=== PATIENT | male | born 1935 | race Caucasian/White ===

== ENCOUNTER 2017-06-22 00:04 | Emergency (ER) | payer MEDICARE, OTHER ==
[2017-06-22] MEDS ORDERED: SODIUM CHLORIDE 0.9% 1,000 ML IV STA (00:07)
[2017-06-22] MEDS ORDERED: SODIUM CHLORIDE 0.9% 500 ML IV STA (00:07)
--- NOTE | 2017-06-22 00:10 | ED ---
General Adult HPI - General Stated complaint: NVD Time Seen by Provider: 06/22/17 00:07 Source: patient, EMS, RN notes reviewed, old records reviewed - History of Present Illness Initial comments: 82-year-old male presenting with nausea vomiting and diarrhea. History is obtained from EMS. [facility] According to [facility] staff patient had developed diarrhea and generalized weakness throughout the day today. He is normally able to ambulate with assistance and he was unable to do so. Chest prior to calling EMS patient did develop one episode of vomiting. Patient is alert and oriented 1 at baseline. According to EMS was history of closed head injury. Patient has no complaints at the time my evaluation, denies any pain. - Related Data Home Medications Medication Instructions Recorded Confirmed Atenolol [Tenormin] 12.5 mg PO DAILY@0800 11/23/13 11/28/15 Omeprazole [PriLOSEC] 20 mg PO BID@0800,199911/23/13 11/28/15 risperiDONE [RisperDAL] 0.5 mg PO BID@0800,199911/23/13 11/28/15 ALPRAZolam [Xanax] 0.25 mg PO DAILY PRN 05/30/14 11/28/15 Acetaminophen Tab [Tylenol] 650 mg PO Q4H PRN 05/30/14 11/28/15 Potassium Chloride [Klor-Con 10] 10 meq PO BID@0800,199905/30/14 11/28/15 Acetaminophen Tab [Tylenol] 500 mg PO BID@0800,199911/28/15 11/28/15 Donepezil [Aricept] 10 mg PO DAILY@0800 11/28/15 11/28/15 Furosemide [Lasix] 20 mg PO Q48H 11/28/15 11/28/15 Memantine [Namenda] 5 mg PO BID@0800,199911/28/15 11/28/15 Pravastatin Sodium [Pravachol] 40 mg PO HS@199911/28/15 11/28/15 Prochlorperazine [Compazine] 5 mg PO Q6H PRN 11/28/15 11/28/15 Rivaroxaban [Xarelto] 15 mg PO HS@199911/28/15 11/28/15 Sertraline [Zoloft] 100 mg PO DAILY@0800 11/28/15 11/28/15 amLODIPine [Norvasc] 2.5 mg PO DAILY@0800 11/28/15 11/28/15 Allergies Allergy/AdvReac Type Severity Reaction Status Date / Time Penicillins Allergy Unknown Verified 11/28/15 14:03 Review of Systems ROS Statement: Those systems with pertinent positive or pertinent negative responses have been documented in the HPI. ROS Other: All systems not noted in ROS Statement are negative. Past Medical History Past Medical History: Asthma, GERD/Reflux, Hyperlipidemia, Hypertension Additional Past Medical History / Comment(s): right leg tumor History of Any Multi-Drug Resistant Organisms: None Reported Past Surgical History: No Surgical Hx Reported Additional Past Surgical History / Comment(s): right leg tumor removed 2001 Past Anesthesia/Blood Transfusion Reactions: No Reported Reaction Past Psychological History: No Psychological Hx Reported, Depression Smoking Status: Former smoker Past Alcohol Use History: None Reported Past Drug Use History: None Reported - Past Family History Father Family Medical History: Hyperlipidemia, Hypertension, Myocardial Infarction ([place]) Additional Family Medical History / Comment(s): cerebral hemorrage Mother Family Medical History: Congestive Heart Failure (CHF), Vascular Disorder Additional Family Medical History / Comment(s): enlarged heart,poor circulation General Exam General appearance: alert, in no apparent distress Head exam: Present: atraumatic, normocephalic Eye exam: Present: normal appearance, PERRL ENT exam: Present: mucous membranes dry Neck exam: Present: normal inspection. Absent: tenderness, meningismus Respiratory exam: Present: normal lung sounds bilaterally. Absent: respiratory distress, wheezes Cardiovascular Exam: Present: regular rate, irregular rhythm GI/Abdominal exam: Present: soft. Absent: distended, tenderness, guarding, rebound Extremities exam: Present: normal inspection, full ROM Neurological exam: Present: alert, motor sensory deficit (Reduced shopper strength on the right with some contracture.). Absent: oriented X3 (Name only) Psychiatric exam: Present: agitated Skin exam: Present: warm, dry, intact. Absent: cyanosis, diaphoretic Course Vital Signs 06/22/17 06/22/17 00:58 01:34 Temperature 96.9 F L Pulse Rate 80 92 Respiratory 18 16 Rate Blood Pressure 163/69 137/62 O2 Sat by Pulse 96 96 Oximetry - Reevaluation(s) Reevaluation #1: 06/22/17 00:28 Further history is obtained from the patient's daughter who states she was informed of the nausea vomiting and diarrhea. She confirms that the patient is at his baseline mental status. He does have history of A. fib, remote history of cancer. EKG Findings - EKG Comments: EKG Findings:: EKG: Atrial fibrillation with PVC rate of 90, QRS duration 80, QTc 506 no definitive signs of ischemia. Medical Decision Making - Medical Decision Making 82-year-old male with nausea vomiting and diarrhea. History obtained primarily from the patient's daughter, EMS and the medical record. Exam is unremarkable. Patient does appear slightly dehydrated, no abdominal tenderness or distention. Lungs are clear, heart is irregular normal rate. Laboratory studies obtained, mild leukocytosis may be reactive from vomiting. Hemoglobin 13.0. Electrolytes reveal sodium 144, there is elevated magnesium at 2.6, otherwise electrolytes are within normal limits. Lactic acid is negative. Chest x-ray obtained, negative for focal pneumonia or acute processes. KUB is negative for obstruction or free air. Urinalysis does not show significant signs of infection. Patient is observed in the emergency department, no episodes of vomiting or diarrhea. Case discussed at length with the patient's daughter who is at bedside, comfortable with discharge at this time. Patient will be [facility]. If symptoms persists or there is concern for dehydration, patient will be presented to the emergency department. - Lab Data Result diagrams: 06/22/17 00:09 06/22/17 00:09 Lab Results 06/22/17 06/22/17 06/22/17 Range/Units 00:09 00:09 00:09 WBC 12.0 H (3.8-10.6) k/uL RBC 4.71 (4.30-5.90) m/uL Hgb 13.0 (13.0-17.5) gm/dL Hct 42.0 (39.0-53.0) % MCV 89.1 (80.0-100.0) fL MCH 27.7 (25.0-35.0) pg MCHC 31.1 (31.0-37.0) g/dL RDW 17.6 H (11.5-15.5) % Plt Count 151 (150-450) k/uL Neutrophils % 84 % Lymphocytes % 7 % Monocytes % 7 % Eosinophils % 2 % Basophils % 0 % Neutrophils # 10.0 H (1.3-7.7) k/uL Lymphocytes # 0.8 L (1.0-4.8) k/uL Monocytes # 0.8 (0-1.0) k/uL Eosinophils # 0.2 (0-0.7) k/uL Basophils # 0.0 (0-0.2) k/uL Hypochromasia Moderate Anisocytosis Slight PT (9.0-12.0) sec INR (<1.2) APTT (22.0-30.0) sec Sodium 144 (137-145) mmol/L Potassium 4.2 (3.5-5.1) mmol/L Chloride 104 (98-107) mmol/L Carbon Dioxide 30 (22-30) mmol/L Anion Gap 10 mmol/L BUN 21 H (9-20) mg/dL Creatinine 0.80 (0.66-1.25) mg/dL Est GFR (CKD-EPI)AfAm >90 (>60 ml/min/1.73 sqM) Est GFR (CKD-EPI)NonAf 84 (>60 ml/min/1.73 sqM) Glucose 112 H (74-99) mg/dL Plasma Lactic Acid Enrique 1.2 (0.7-2.0) mmol/L Calcium 8.3 L (8.4-10.2) mg/dL Magnesium 2.6 H (1.6-2.3) mg/dL Total Bilirubin 0.2 (0.2-1.3) mg/dL AST 21 (17-59) U/L ALT 29 (21-72) U/L Alkaline Phosphatase 141 H (38-126) U/L Total Protein 6.2 L (6.3-8.2) g/dL Albumin 3.4 L (3.5-5.0) g/dL Urine Color Urine Appearance (Clear) Urine pH (5.0-8.0) Ur Specific [place] (1.001-1.035) Urine Protein (Negative) Urine Glucose (UA) (Negative) Urine Ketones (Negative) Urine Blood (Negative) Urine Nitrite (Negative) Urine Bilirubin (Negative) Urine Urobilinogen (<2.0) mg/dL Ur Leukocyte Esterase (Negative) Urine RBC (0-5) /hpf Urine WBC (0-5) /hpf Amorphous Sediment (None) /hpf Urine Mucus (None) /hpf 06/22/17 06/22/17 Range/Units 00:09 01:32 WBC (3.8-10.6) k/uL RBC (4.30-5.90) m/uL Hgb (13.0-17.5) gm/dL Hct (39.0-53.0) % MCV (80.0-100.0) fL MCH (25.0-35.0) pg MCHC (31.0-37.0) g/dL RDW (11.5-15.5) % Plt Count (150-450) k/uL Neutrophils % % Lymphocytes % % Monocytes % % Eosinophils % % Basophils % % Neutrophils # (1.3-7.7) k/uL Lymphocytes # (1.0-4.8) k/uL Monocytes # (0-1.0) k/uL Eosinophils # (0-0.7) k/uL Basophils # (0-0.2) k/uL Hypochromasia Anisocytosis PT 9.6 (9.0-12.0) sec INR 1.0 (<1.2) APTT 22.9 (22.0-30.0) sec Sodium (137-145) mmol/L Potassium (3.5-5.1) mmol/L Chloride (98-107) mmol/L Carbon Dioxide (22-30) mmol/L Anion Gap mmol/L BUN (9-20) mg/dL Creatinine (0.66-1.25) mg/dL Est GFR (CKD-EPI)AfAm (>60 ml/min/1.73 sqM) Est GFR (CKD-EPI)NonAf (>60 ml/min/1.73 sqM) Glucose (74-99) mg/dL Plasma Lactic Acid Enrique (0.7-2.0) mmol/L Calcium (8.4-10.2) mg/dL Magnesium (1.6-2.3) mg/dL Total Bilirubin (0.2-1.3) mg/dL AST (17-59) U/L ALT (21-72) U/L Alkaline Phosphatase (38-126) U/L Total Protein (6.3-8.2) g/dL Albumin (3.5-5.0) g/dL Urine Color Light Yellow Urine Appearance Clear (Clear) Urine pH 8.0 (5.0-8.0) Ur Specific [place] 1.007 (1.001-1.035) Urine Protein Negative (Negative) Urine Glucose (UA) Negative (Negative) Urine Ketones Negative (Negative) Urine Blood Small H (Negative) Urine Nitrite Negative (Negative) Urine Bilirubin Negative (Negative) Urine Urobilinogen <2.0 (<2.0) mg/dL Ur Leukocyte Esterase Small H (Negative) Urine RBC 4 (0-5) /hpf Urine WBC 4 (0-5) /hpf Amorphous Sediment Rare H (None) /hpf Urine Mucus Rare H (None) /hpf Disposition Clinical Impression: Nausea vomiting and diarrhea Disposition: HOME SELF-CARE Condition: Fair Instructions: Acute Nausea and Vomiting (ED), Acute Diarrhea (ED) Is patient prescribed a controlled substance at d/c from ED?: No Referrals: Rj Mathis MD [Primary Care Provider] - 1-2 days Time of Disposition: 02:04
[2017-06-22 00:46] LABS: Anisocytosis Slight; Hypochromasia Moderate; RDW 17.6 % (11.5-15.5)
[2017-06-22 00:55] LABS: ALT 29 U/L (21-72); AST 21 U/L (17-59); Albumin 3.4 g/dL (3.5-5.0); Alkaline Phosphatase 141 U/L (38-126); Anion Gap 10 mmol/L; Blood Urea Nitrogen 21 mg/dL (9-20); Calcium 8.3 mg/dL (8.4-10.2); Carbon Dioxide 30 mmol/L (22-30); Chloride 104 mmol/L (98-107); Glucose 112 mg/dL (74-99); Magnesium 2.6 mg/dL (1.6-2.3); Potassium 4.2 mmol/L (3.5-5.1); Sodium 144 mmol/L (137-145); Total Bilirubin 0.2 mg/dL (0.2-1.3); Total Protein 6.2 g/dL (6.3-8.2)
[2017-06-22 01:01] LABS: Partial Thromboplastin Time 22.9 sec (22.0-30.0); Prothrombin Time 9.6 sec (9.0-12.0)
[2017-06-22 01:08] LABS: Basophils % (A) 0 %; Eosinophils # (A) 0.2 k/uL (0-0.7); Eosinophils % (A) 2 %; Lymphocytes # (A) 0.8 k/uL (1.0-4.8); Lymphocytes % (A) 7 %; MCH 27.7 pg (25.0-35.0); MCHC 31.1 g/dL (31.0-37.0); MCV 89.1 fL (80.0-100.0); Mean Platelet Volume 8.5; Monocytes # (A) 0.8 k/uL (0-1.0); Monocytes % (A) 7 %; Neutrophils % (A) 84 %; Platelet Count 151 k/uL (150-450); RBC 4.71 m/uL (4.30-5.90)
--- NOTE | 2017-06-22 01:25 | XR ---
EXAMINATION TYPE: XR chest 2V DATE OF EXAM: 06/22/2017 COMPARISON: 11/28/2015 HISTORY: Weakness TECHNIQUE: Frontal and lateral views of the chest are obtained. FINDINGS: There is no heart failure. There is coarsening of interstitial markings. There are old lef t-sided healed rib fractures. There are chest leads. Thoracic aorta is atheromatous. There is some pl eural thickening at the lung apices. IMPRESSION: Pleural and pulmonary scarring at the lung apices. Mild pulmonary fibrosis. No heart evelyn lure. No significant change overall compared to old exam.
--- NOTE | 2017-06-22 01:26 | XR ---
EXAMINATION TYPE: XR KUB DATE OF EXAM: 06/22/2017 COMPARISON: 11/24/2013 HISTORY: Weakness TECHNIQUE: 2 views FINDINGS: There is no sign of intestinal obstruction or pneumoperitoneum. There is a slight levoscoli osis. There are spondylotic changes in the lumbar spine. There are no pathologic calcifications over the kidneys. I see no evidence of a mass. IMPRESSION: Nonacute abdomen. No significant change.
[2017-06-22 01:35] VITALS: RESP 16
[2017-06-22 01:42] LABS: Amorphous Sediment,Urine Rare /hpf; Appearance,Urine Clear (Clear); Bilirubin,Urine Negative (Negative); Blood,Urine Small (Negative); Color,Urine Light Yellow; Glucose,Urine (UA) Negative (Negative); Ketones,Urine Negative (Negative); Leukocyte Esterase,Urine Small (Negative); Mucus,Urine Rare /hpf; Nitrite,Urine Negative (Negative); Protein,Urine Negative (Negative); RBC,Urine 4 /hpf (0-5); Specific Gravity,Urine 1.007 (1.001-1.035); Urobilinogen,Urine <2.0 mg/dL (<2.0); WBC,Urine 4 /hpf (0-5)
[2017-06-22 02:54] VITALS: BP 130/65; PULSE 89; TEMP 97.2
== END 2017-06-22 02:53 | disposition home or self-care (01) ==
LOC: EC 00:04
DX: R11.2 Nausea with vomiting, unspecified (principal); R19.7 Diarrhea, unspecified; R53.1 Weakness; K21.9 Gastro-esophageal reflux disease without esophagitis; E78.5 Hyperlipidemia, unspecified; I10 Essential (primary) hypertension; I48.91 Unspecified atrial fibrillation; F32.9 Major depressive disorder, single episode, unspecified; Z85.9 Personal history of malignant neoplasm, unspecified; Z87.891 Personal history of nicotine dependence; Z79.01 Long term (current) use of anticoagulants; Z79.899 Other long term (current) drug therapy; Z88.0 Allergy status to penicillin
CPT/HCPCS: 36415; 71046; 74018; 80053; 81001; 83605; 83735; 85025; 85610; 85730; 93005; 96360; 99285

== ENCOUNTER 2017-07-28 19:28 | Inpatient (IN) | payer MEDICARE, OTHER ==
[2017-07-28] MEDS ORDERED: SODIUM CHLORIDE 0.9% 1,000 ML IV STA (19:46)
[2017-07-28] MEDS ORDERED: DILTIAZEM 50 MG in SODIUM CHLORIDE 0.9% 40 ML IV ONE (19:50)
[2017-07-28] MEDS ORDERED: LIDOCAINE URO-JET JELLY 2% 5 ML KIT URETHRAL ONE (20:00)
--- NOTE | 2017-07-28 20:08 | ED ---
Fever HPI - General Chief Complaint: Fever Stated Complaint: Abd Pain, Vomitting Time Seen by Provider: 07/28/17 19:36 Source: patient, family, RN notes reviewed Mode of arrival: wheelchair Limitations: altered mental status - History of Present Illness Initial Comments: This an 82-year-old male with said that her [facility]. Patient reportedly has been sick last few days. Patient has had a cough which is productive with phlegm and shortness of breath. Patient himself has no specific complaints other than the cough. Family also states that he is had issues with constipation they did give him milk of magnesia and had 3 bowel movements 2 days ago. Patient reports 2 episodes of vomiting today but has no complaints of nausea at this time. Patient has a history of A. fib. Patient denies any ear pain, sore throat, headache or dizziness. - Related Data Home Medications Medication Instructions Recorded Confirmed Atenolol [Tenormin] 12.5 mg PO DAILY@0800 11/23/13 11/28/15 Omeprazole [PriLOSEC] 20 mg PO BID@0800,199911/23/13 11/28/15 risperiDONE [RisperDAL] 0.5 mg PO BID@0800,199911/23/13 11/28/15 ALPRAZolam [Xanax] 0.25 mg PO DAILY PRN 05/30/14 11/28/15 Acetaminophen Tab [Tylenol] 650 mg PO Q4H PRN 05/30/14 11/28/15 Potassium Chloride [Klor-Con 10] 10 meq PO BID@0800,199905/30/14 11/28/15 Acetaminophen Tab [Tylenol] 500 mg PO BID@0800,199911/28/15 11/28/15 Donepezil [Aricept] 10 mg PO DAILY@0800 11/28/15 11/28/15 Furosemide [Lasix] 20 mg PO Q48H 11/28/15 11/28/15 Memantine [Namenda] 5 mg PO BID@0800,199911/28/15 11/28/15 Pravastatin Sodium [Pravachol] 40 mg PO HS@199911/28/15 11/28/15 Prochlorperazine [Compazine] 5 mg PO Q6H PRN 11/28/15 11/28/15 Rivaroxaban [Xarelto] 15 mg PO HS@2000 11/28/15 11/28/15 Sertraline [Zoloft] 100 mg PO DAILY@0800 11/28/15 11/28/15 amLODIPine [Norvasc] 2.5 mg PO DAILY@0800 11/28/15 11/28/15 Allergies Allergy/AdvReac Type Severity Reaction Status Date / Time Penicillins Allergy Unknown Verified 07/28/17 19:34 Review of Systems ROS Statement: Those systems with pertinent positive or pertinent negative responses have been documented in the HPI. ROS Other: All systems not noted in ROS Statement are negative. Past Medical History Past Medical History: Atrial Fibrillation, Asthma, Cancer, Heart Failure, COPD, CVA/TIA, Dementia, GERD/Reflux, Hyperlipidemia, Hypertension, Osteoarthritis (OA ), Prostate Disorder Additional Past Medical History / Comment(s): right leg tumor ca, [facility] History of Any Multi-Drug Resistant Organisms: None Reported Past Surgical History: Hernia Repair Additional Past Surgical History / Comment(s): right leg cancer tumor removed 2001 Past Anesthesia/Blood Transfusion Reactions: No Reported Reaction Past Psychological History: No Psychological Hx Reported, Depression Smoking Status: Former smoker Past Alcohol Use History: None Reported Past Drug Use History: None Reported - Past Family History Father Family Medical History: Hyperlipidemia, Hypertension, Myocardial Infarction ([place]) Additional Family Medical History / Comment(s): cerebral hemorrage Mother Family Medical History: Congestive Heart Failure (CHF), Vascular Disorder Additional Family Medical History / Comment(s): enlarged heart,poor circulation General Exam Limitations: altered mental status General appearance: alert, in no apparent distress Head exam: Present: atraumatic, normocephalic, normal inspection Eye exam: Present: normal appearance, PERRL, EOMI. Absent: scleral icterus, conjunctival injection, periorbital swelling ENT exam: Present: normal exam, mucous membranes moist Neck exam: Present: normal inspection. Absent: tenderness, meningismus, lymphadenopathy Respiratory exam: Present: wheezes, rhonchi. Absent: normal lung sounds bilaterally, respiratory distress, rales, stridor Cardiovascular Exam: Present: tachycardia, irregular rhythm, normal heart sounds. Absent: systolic murmur, diastolic murmur, rubs, gallop, clicks GI/Abdominal exam: Present: soft, normal bowel sounds. Absent: distended, tenderness, guarding, rebound, rigid Extremities exam: Present: normal inspection, full ROM, normal capillary refill. Absent: tenderness, pedal edema, joint swelling, calf tenderness Back exam: Present: normal inspection Neurological exam: Present: alert, CN II-XII intact. Absent: oriented X3 Psychiatric exam: Present: normal affect, normal mood Skin exam: Present: warm, dry, intact, normal color. Absent: rash Course Vital Signs 07/28/17 07/28/17 07/28/17 19:31 20:00 20:34 Temperature 99.9 F H 99.9 F H Pulse Rate 96 99 Pulse Rate [ 115 H Fire Pilot ] Respiratory 22 18 Rate Blood Pressure 144/99 160/78 O2 Sat by Pulse 93 L 96 Oximetry 07/28/17 07/28/17 21:11 21:13 Temperature Pulse Rate 86 Pulse Rate [ 84 Fire Pilot ] Respiratory 18 Rate Blood Pressure 156/72 O2 Sat by Pulse 96 Oximetry Medical Decision Making - Medical Decision Making 82-year-old male present emergency department for fever. Patient's found to have right upper lobe pneumonia. Patient also was found to have urinary retention Sanchez was placed. Urine culture was obtained. Patient was started on Levaquin for his pneumonia at this time. Patient also has A. fib history of current RVR. Patient was given Cardizem. Heart rate between 80 and 110 at this time. - Lab Data Result diagrams: 07/28/17 20:00 07/28/17 20:00 Lab Results 07/28/17 07/28/17 07/28/17 Range/Units 20:00 20:00 20:00 WBC 13.2 H (3.8-10.6) k/uL RBC 4.76 (4.30-5.90) m/uL Hgb 13.3 (13.0-17.5) gm/dL Hct 42.1 (39.0-53.0) % MCV 88.3 (80.0-100.0) fL MCH 27.9 (25.0-35.0) pg MCHC 31.6 (31.0-37.0) g/dL RDW 18.1 H (11.5-15.5) % Plt Count 128 L (150-450) k/uL Neutrophils % 89 % Lymphocytes % 4 % Monocytes % 6 % Eosinophils % 1 % Basophils % 0 % Neutrophils # 11.8 H (1.3-7.7) k/uL Lymphocytes # 0.5 L (1.0-4.8) k/uL Monocytes # 0.7 (0-1.0) k/uL Eosinophils # 0.1 (0-0.7) k/uL Basophils # 0.0 (0-0.2) k/uL Hypochromasia Slight Anisocytosis Slight PT (9.0-12.0) sec INR (<1.2) APTT (22.0-30.0) sec Sodium 143 (137-145) mmol/L Potassium 4.2 (3.5-5.1) mmol/L Chloride 107 (98-107) mmol/L Carbon Dioxide 25 (22-30) mmol/L Anion Gap 11 mmol/L BUN 19 (9-20) mg/dL Creatinine 1.20 (0.66-1.25) mg/dL Est GFR (CKD-EPI)AfAm 65 (>60 ml/min/1.73 sqM) Est GFR (CKD-EPI)NonAf 56 (>60 ml/min/1.73 sqM) Glucose 170 H (74-99) mg/dL Plasma Lactic Acid Enrique 1.6 (0.7-2.0) mmol/L Calcium 9.2 (8.4-10.2) mg/dL Total Bilirubin 0.5 (0.2-1.3) mg/dL AST 31 (17-59) U/L ALT 35 (21-72) U/L Alkaline Phosphatase 104 (38-126) U/L Troponin I (0.000-0.034) ng/mL Total Protein 6.5 (6.3-8.2) g/dL Albumin 3.7 (3.5-5.0) g/dL Urine Color Urine Appearance (Clear) Urine pH (5.0-8.0) Ur Specific [place] (1.001-1.035) Urine Protein (Negative) Urine Glucose (UA) (Negative) Urine Ketones (Negative) Urine Blood (Negative) Urine Nitrite (Negative) Urine Bilirubin (Negative) Urine Urobilinogen (<2.0) mg/dL Ur Leukocyte Esterase (Negative) Urine RBC (0-5) /hpf Urine WBC (0-5) /hpf Urine WBC Clumps (None) /hpf Urine Mucus (None) /hpf 07/28/17 07/28/17 07/28/17 Range/Units 20:00 20:00 20:26 WBC (3.8-10.6) k/uL RBC (4.30-5.90) m/uL Hgb (13.0-17.5) gm/dL Hct (39.0-53.0) % MCV (80.0-100.0) fL MCH (25.0-35.0) pg MCHC (31.0-37.0) g/dL RDW (11.5-15.5) % Plt Count (150-450) k/uL Neutrophils % % Lymphocytes % % Monocytes % % Eosinophils % % Basophils % % Neutrophils # (1.3-7.7) k/uL Lymphocytes # (1.0-4.8) k/uL Monocytes # (0-1.0) k/uL Eosinophils # (0-0.7) k/uL Basophils # (0-0.2) k/uL Hypochromasia Anisocytosis PT 9.8 (9.0-12.0) sec INR 1.0 (<1.2) APTT 22.1 (22.0-30.0) sec Sodium (137-145) mmol/L Potassium (3.5-5.1) mmol/L Chloride (98-107) mmol/L Carbon Dioxide (22-30) mmol/L Anion Gap mmol/L BUN (9-20) mg/dL Creatinine (0.66-1.25) mg/dL Est GFR (CKD-EPI)AfAm (>60 ml/min/1.73 sqM) Est GFR (CKD-EPI)NonAf (>60 ml/min/1.73 sqM) Glucose (74-99) mg/dL Plasma Lactic Acid Enrique (0.7-2.0) mmol/L Calcium (8.4-10.2) mg/dL Total Bilirubin (0.2-1.3) mg/dL AST (17-59) U/L ALT (21-72) U/L Alkaline Phosphatase (38-126) U/L Troponin I <0.012 (0.000-0.034) ng/mL Total Protein (6.3-8.2) g/dL Albumin (3.5-5.0) g/dL Urine Color Yellow Urine Appearance Clear (Clear) Urine pH 6.0 (5.0-8.0) Ur Specific [place] 1.008 (1.001-1.035) Urine Protein Negative (Negative) Urine Glucose (UA) Negative (Negative) Urine Ketones Negative (Negative) Urine Blood Small H (Negative) Urine Nitrite Negative (Negative) Urine Bilirubin Negative (Negative) Urine Urobilinogen <2.0 (<2.0) mg/dL Ur Leukocyte Esterase Small H (Negative) Urine RBC 8 H (0-5) /hpf Urine WBC 9 H (0-5) /hpf Urine WBC Clumps Rare H (None) /hpf Urine Mucus Rare H (None) /hpf - EKG Data EKG Comments: EKG performed at 19:46 A. fib with RVR rate of 108 QRS 78 QT/QTC 384/514 Disposition Clinical Impression: Atrial fibrillation with RVR, Right upper lobe pneumonia, Urinary retention Disposition: ADMITTED IP TO THIS HOSP Condition: Fair Referrals: Rj Mathis MD [Primary Care Provider] - 1-2 days
[2017-07-28 20:16] LABS: Anisocytosis Slight; Basophils % (A) 0 %; Eosinophils # (A) 0.1 k/uL (0-0.7); Eosinophils % (A) 1 %; HCT 42.1 % (39.0-53.0); HGB 13.3 gm/dL (13.0-17.5); Hypochromasia Slight; Lymphocytes # (A) 0.5 k/uL (1.0-4.8); Lymphocytes % (A) 4 %; MCH 27.9 pg (25.0-35.0); MCHC 31.6 g/dL (31.0-37.0); MCV 88.3 fL (80.0-100.0); Mean Platelet Volume 8.5; Monocytes # (A) 0.7 k/uL (0-1.0); Monocytes % (A) 6 %; Neutrophils # (A) 11.8 k/uL (1.3-7.7); Neutrophils % (A) 89 %; Platelet Count 128 k/uL (150-450); RBC 4.76 m/uL (4.30-5.90); RDW 18.1 % (11.5-15.5); WBC 13.2 k/uL (3.8-10.6)
[2017-07-28 20:24] LABS: Partial Thromboplastin Time 22.1 sec (22.0-30.0); Prothrombin Time 9.8 sec (9.0-12.0)
[2017-07-28 20:26] LABS: Albumin 3.7 g/dL (3.5-5.0); Calcium 9.2 mg/dL (8.4-10.2); Potassium 4.2 mmol/L (3.5-5.1); Total Bilirubin 0.5 mg/dL (0.2-1.3); Total Protein 6.5 g/dL (6.3-8.2)
[2017-07-28 20:57] LABS: Appearance,Urine Clear (Clear); Bilirubin,Urine Negative (Negative); Blood,Urine Small (Negative); Color,Urine Yellow; Glucose,Urine (UA) Negative (Negative); Ketones,Urine Negative (Negative); Leukocyte Esterase,Urine Small (Negative); Mucus,Urine Rare /hpf; Nitrite,Urine Negative (Negative); Protein,Urine Negative (Negative); RBC,Urine 8 /hpf (0-5); Specific Gravity,Urine 1.008 (1.001-1.035); Urobilinogen,Urine <2.0 mg/dL (<2.0); WBC,Urine 9 /hpf (0-5)
--- NOTE | 2017-07-28 21:10 | XR ---
EXAMINATION TYPE: XR chest 2V DATE OF EXAM: 07/28/2017 COMPARISON: 06/22/2017 HISTORY: Cough and congestion TECHNIQUE: Frontal and lateral views of the chest are obtained. FINDINGS: There is blunting of left costophrenic angle. There is no gross heart failure. Thoracic ao rta is atheromatous. There is coarsening of interstitial markings. There are old left-sided healed ri b fractures. There is 5 cm area of infiltrate in the right upper lobe. IMPRESSION: There is increasing right upper lobe infiltrate compared to last exam. Follow-up is edy mmended. No heart failure. There is chronic pleural diaphragmatic scarring at the left lung base.
--- NOTE | 2017-07-28 21:11 | XR ---
EXAMINATION TYPE: XR KUB DATE OF EXAM: 07/28/2017 COMPARISON: 06/22/2017 HISTORY: Abdominal pain TECHNIQUE: 2 views FINDINGS: There is no sign of intestinal obstruction or pneumoperitoneum. Fecal pattern is normal. Th ere are no pathologic calcifications over the kidneys. There is mild lumbar levoscoliosis. IMPRESSION: Nonacute abdomen. No change.
[2017-07-28] MEDS ORDERED: LEVOFLOXACIN 750MG-D5W PMX 750 MG in DEXTROSE/WATER 1 150ML.BAG IVPB STA (21:23)
[2017-07-28] MEDS ORDERED: PNEUMONIA PROTOCOL UTILIZED 1 EACH MISC PO PRN (21:27)
[2017-07-29] MEDS ORDERED: ALPRAZolam 0.5 MG TAB PO PRN (01:04)
[2017-07-29] MEDS ORDERED: PROCHLORPERAZINE 5 MG TAB PO PRN (01:04)
[2017-07-29] MEDS ORDERED: DILTIAZEM 50 MG in SODIUM CHLORIDE 0.9% 40 ML IV SCH (03:00)
[2017-07-29] MEDS: PANTOPRAZOLE 40 MG TABLET PO SCH (06:16)
[2017-07-29 06:48] LABS: Anisocytosis Slight; Basophils % (A) 0 %; Eosinophils # (A) 0.1 k/uL (0-0.7); Eosinophils % (A) 1 %; HCT 34.3 % (39.0-53.0); HGB 10.9 gm/dL (13.0-17.5); Hypochromasia Slight; Lymphocytes # (A) 0.9 k/uL (1.0-4.8); Lymphocytes % (A) 11 %; MCH 28.4 pg (25.0-35.0); MCHC 31.9 g/dL (31.0-37.0); MCV 89.2 fL (80.0-100.0); Monocytes # (A) 0.6 k/uL (0-1.0); Monocytes % (A) 7 %; Neutrophils # (A) 6.5 k/uL (1.3-7.7); Neutrophils % (A) 79 %; Platelet Count 118 k/uL (150-450); RBC 3.84 m/uL (4.30-5.90); RDW 18.1 % (11.5-15.5); WBC 8.3 k/uL (3.8-10.6)
[2017-07-29 07:03] LABS: Albumin 2.8 g/dL (3.5-5.0); Calcium 8.2 mg/dL (8.4-10.2); Total Bilirubin 0.4 mg/dL (0.2-1.3); Total Protein 5.2 g/dL (6.3-8.2)
[2017-07-29] MEDS ORDERED: amLODIPine 2.5 MG TAB PO SCH (08:00)
[2017-07-29] MEDS: SERTRALINE 100 MG TAB PO SCH (08:25)
[2017-07-29] MEDS: MEMANTINE 5 MG TAB PO SCH ×2 (08:25→19:49)
[2017-07-29] MEDS: SENNOSIDES-DOCUSATE SODIUM 1 EACH TAB PO SCH ×2 (08:25→19:49)
[2017-07-29] MEDS: DONEPEZIL 10 MG TAB PO SCH (08:25)
[2017-07-29] MEDS: ACETAMINOPHEN TAB 325 MG TAB PO PRN (08:25)
[2017-07-29] MEDS: ATENOLOL 25 MG TAB PO SCH (08:25)
--- NOTE | 2017-07-29 10:16 | CONS ---
CONSULTATION Mr. Arzola is an 82-year-old male patient who was brought to the emergency room from his [facility] at [facility] with fever and cough and with productive phlegm and shortness of breath. He does not give much for history. He has dementia. When I asked him specifically, he denied any chest discomfort or shortness of breath. He looks very comfortable. REVIEW OF SYSTEMS: Review of systems is not available. MEDICATIONS: His medications in the [facility] include atenolol 12.5 mg p.o. daily, omeprazole, Risperdal, Xanax, Tylenol, potassium, Aricept, Lasix 20 mg every 48 hours, Namenda, Pravachol, Compazine, Xarelto 15 mg p.o. daily that was in 2016, but it is not on his medication list at this time, sertraline and amlodipine. ALLERGIES: Allergies to PENICILLIN. PAST HISTORY: Past history of atrial fibrillation that was very well rate controlled with very low- dose beta blockers, history of cancer, history of CVA, dementia, GERD, hypertension, dyslipidemia, and prostate enlargement. SOCIAL HISTORY: He was a former smoker. FAMILY HISTORY: Noncontributory at this point. PHYSICAL EXAMINATION: On examination, he was febrile 99.9 degree Fahrenheit. His pulse rate was 115 beats per minute in atrial fibrillation. Blood pressure 144/99 mmHg. His head and neck examination normal. There is no JVD. No carotid bruits. Breath sounds are reduced bilaterally. Some crackles on the right side. Air entry is reduced because of poor inspiratory effort. Heart sounds S1, S2 normal. No murmurs or gallops. No rub. ABDOMEN: Soft, nontender. No hepatic jugular reflux. Extremities are warm. No edema. His chest x-ray report states that there is an increasing right upper lobe infiltrate compared to the last examination with no heart failure without evidence for congestion. LABS: Labs are reviewed. His white count was elevated upon admission, 13.2 thousand. Platelet count is reduced at 118,000. Hemoglobin is 10.9. Sodium 146, chloride 111, normal potassium. Kidney functions are normal. IMPRESSION: 1. An elderly gentleman presenting with pneumonitis and being treated for this. 2. Permanent atrial fibrillation, rate controlled on low-dose atenolol. He is on IV Cardizem, which I would prefer to stop. Otherwise, he would get bradycardic because he is very well controlled on very low dose of atenolol. 3. Hypertension. SUGGEST: From a cardiac standpoint, he may go to the medical floor for further management of atrial fibrillation. I would be very careful with increasing any of his rate control medications and I would prefer that his Cardizem be stopped and he may just take his atenolol dose as before. A TSH level to be checked. MMHARRY / IJN: [id number] /
[2017-07-29] MEDS: ACETAMINOPHEN TAB 500 MG TAB PO SCH ×2 (10:32→19:48)
--- NOTE | 2017-07-29 12:16 | P.HPIM ---
History of Present Illness 82-year-old pleasant gentleman appears to have dementia which appears to be severe was sent in from assisted living as he was having fever. Patient is unable to provide many history patient apparently was having productive cough and shortness of breath patient is found to have right upper lobe pneumonia. Patient does have history of atrial fibrillation. Patient is not on any anticoagulation at this time probably because of his dementia and had he had issues with hematuria in the past. [facility] because of his mild rapid rate cardio J valid to the patient patient is rate controlled at this time and the patient's Cardizem was discontinued and patient will be transferred to medical surgical floor. Patient is on levofloxacin. Patient does have ALLERGY to penicillin type of ALLERGY is unknown because of which I'll continue with levofloxacin for now. Amlodipine will be discontinued and the patient will be continued on atenolol. Review of Systems Unable to obtain Past Medical History Past Medical History: Atrial Fibrillation, Asthma, Cancer, Heart Failure, COPD, CVA/TIA, Dementia, GERD/Reflux, Hyperlipidemia, Hypertension, Osteoarthritis (OA ), Prostate Disorder Additional Past Medical History / Comment(s): right leg tumor ca, [facility] History of Any Multi-Drug Resistant Organisms: None Reported Past Surgical History: Hernia Repair Additional Past Surgical History / Comment(s): right leg cancer tumor removed 2001 Past Anesthesia/Blood Transfusion Reactions: No Reported Reaction Past Psychological History: No Psychological Hx Reported, Depression Smoking Status: Former smoker Past Alcohol Use History: None Reported Past Drug Use History: None Reported - Past Family History Father Family Medical History: Hyperlipidemia, Hypertension, Myocardial Infarction ([place]) Additional Family Medical History / Comment(s): cerebral hemorrage Mother Family Medical History: Congestive Heart Failure (CHF), Vascular Disorder Additional Family Medical History / Comment(s): enlarged heart,poor circulation Medications and Allergies Home Medications Medication Instructions Recorded Confirmed Type Atenolol [Tenormin] 25 mg PO DAILY@0800 11/23/13 07/29/17 History Omeprazole [PriLOSEC] 40 mg PO DAILY 11/23/13 07/29/17 History ALPRAZolam [Xanax] 0.5 mg PO Q6H PRN 05/30/14 07/29/17 History Acetaminophen Tab [Tylenol] 650 mg PO Q4H PRN 05/30/14 07/29/17 History Acetaminophen Tab [Tylenol] 500 mg PO BID@0800,199911/28/15 07/29/17 History Donepezil [Aricept] 10 mg PO DAILY@0800 11/28/15 07/29/17 History Memantine [Namenda] 10 mg PO BID@08,199911/28/15 07/29/17 History Prochlorperazine [Compazine] 5 mg PO Q6H PRN 11/28/15 07/29/17 History Sertraline [Zoloft] 100 mg PO DAILY@0800 11/28/15 07/29/17 History amLODIPine [Norvasc] 2.5 mg PO DAILY@0800 11/28/15 07/29/17 History Ensure 250 ml PO BID@0800,1700 07/29/17 07/29/17 History Ergocalciferol (Vitamin D2) 50,000 unit PO FR 07/29/17 07/29/17 History [Vitamin D2] Haloperidol [Haldol] 1 mg PO Q8H PRN 07/29/17 07/29/17 History Lactulose 10 gm PO BID PRN 07/29/17 07/29/17 History Mag Hydrox/Al Hydrox/Simeth 10 ml PO QID 07/29/17 07/29/17 History [Maalox] Magnesium Hydroxide [Milk of 400 mg PO Q72H PRN 07/29/17 07/29/17 History Magnesia] QUEtiapine FUMARATE 50 mg PO HS 07/29/17 07/29/17 History QUEtiapine [SEROquel] 100 mg PO DAILY PRN 07/29/17 07/29/17 History Sennosides-Docusate Sodium 1 tab PO BID 07/29/17 07/29/17 History [Senokot-S] Allergies Allergy/AdvReac Type Severity Reaction Status Date / Time Penicillins Allergy Unknown Verified 07/29/17 08:18 Physical Exam Vitals: Vital Signs Temp Pulse Pulse Resp BP BP Pulse Ox 07/29/17 08:30 97.6 F 70 16 125/72 95 07/29/17 04:00 98.5 F 76 18 123/64 92 L 07/28/17 22:15 98.0 F 79 18 148/70 92 L 07/28/17 22:00 98.2 F 93 18 149/82 96 07/28/17 21:13 84 07/28/17 21:11 86 18 156/72 96 07/28/17 20:34 99.9 F H 99 18 160/78 96 07/28/17 20:00 115 H 07/28/17 19:31 99.9 F H 96 22 144/99 93 L Intake and Output 07/28/17 07/29/17 07/29/17 22:59 06:59 14:59 Intake Total 150 180 Output Total 1525 600 600 Balance -1525 -450 -420 Intake: Intake, IV Titration 150 Amount Levofloxacin 750Mg-D5w 150 Pmx 750 mg In Dextrose/ Water 1 150ml.bag @ 100 mls/hr IVPB ONCE STA Rx#: [id number] Oral 180 Output: Urine 1525 600 600 Uretheral (Sanchez) 1225 600 600 Other: Voiding Method Indwelling Catheter Indwelling Catheter Indwelling Catheter Weight 75 kg 75.5 kg PHYSICAL EXAMINATION: GENERAL: The patient is alert and oriented x1, not in any acute distress. Well developed, well nourished. HEENT: Pupils are round and equally reacting to light. EOMI. No scleral icterus. No conjunctival pallor. Normocephalic, atraumatic. No pharyngeal erythema. No thyromegaly. CARDIOVASCULAR: S1 and S2 present. No murmurs, rubs, or gallops. Irregularly irregular rhythm PULMONARY: Chest is clear to auscultation, no wheezing or crackles. ABDOMEN: Soft, nontender, nondistended, normoactive bowel sounds. No palpable organomegaly. MUSCULOSKELETAL: No joint swelling or deformity. EXTREMITIES: No cyanosis, clubbing, or pedal edema. Chronic venous stasis dermatosis of bilateral lower limbs without any cellulitis NEUROLOGICAL: Neuro exam is significantly limited as patient cannot follow commands, SKIN: No rashes. Results CBC & Chem 7: 07/29/17 06:31 07/29/17 06:31 Labs: Abnormal Lab Results - Last 24 Hours (Table) 07/28/17 07/28/17 07/28/17 Range/Units 20:00 20:00 20:26 WBC 13.2 H (3.8-10.6) k/uL RBC (4.30-5.90) m/uL Hgb (13.0-17.5) gm/dL Hct (39.0-53.0) % RDW 18.1 H (11.5-15.5) % Plt Count 128 L (150-450) k/uL Neutrophils # 11.8 H (1.3-7.7) k/uL Lymphocytes # 0.5 L (1.0-4.8) k/uL Sodium (137-145) mmol/L Chloride (98-107) mmol/L Glucose 170 H (74-99) mg/dL Calcium (8.4-10.2) mg/dL Total Protein (6.3-8.2) g/dL Albumin (3.5-5.0) g/dL Urine Blood Small H (Negative) Ur Leukocyte Esterase Small H (Negative) Urine RBC 8 H (0-5) /hpf Urine WBC 9 H (0-5) /hpf Urine WBC Clumps Rare H (None) /hpf Urine Mucus Rare H (None) /hpf 07/29/17 07/29/17 Range/Units 06:31 06:31 WBC (3.8-10.6) k/uL RBC 3.84 L (4.30-5.90) m/uL Hgb 10.9 L (13.0-17.5) gm/dL Hct 34.3 L (39.0-53.0) % RDW 18.1 H (11.5-15.5) % Plt Count 118 L (150-450) k/uL Neutrophils # (1.3-7.7) k/uL Lymphocytes # 0.9 L (1.0-4.8) k/uL Sodium 146 H (137-145) mmol/L Chloride 111 H (98-107) mmol/L Glucose (74-99) mg/dL Calcium 8.2 L (8.4-10.2) mg/dL Total Protein 5.2 L (6.3-8.2) g/dL Albumin 2.8 L (3.5-5.0) g/dL Urine Blood (Negative) Ur Leukocyte Esterase (Negative) Urine RBC (0-5) /hpf Urine WBC (0-5) /hpf Urine WBC Clumps (None) /hpf Urine Mucus (None) /hpf Thrombosis Risk Factor Assmnt - Choose All That Apply Each Risk Factor Represents 3 Points: Age 75 years or older Thrombosis Risk Factor Assessment Total Risk Factor Score: 3 Thrombosis Risk Factor Assessment Level: Moderate Risk Assessment and Plan Plan: -Sepsis is secondary to right upper lobe pneumonia: Patient will return levofloxacin. Will awaiting sputum cultures and blood cultures -Atrial fibrillation with mildly elevated left ventricular rate, presently rate controlled patient will be transferred out of [facility] to care unit patient will be continued on atenolol and patient is not on anticoagulation because of his advanced dementia. -Generalized deconditioning: PT and OT evaluated the patient -Possibility of advanced dementia, I do not know the etiology of dementia -History of asthma not in asthma or COPD exacerbation -Gastroesophageal reflux disease -Hypertension -CVA TIA in the past
--- NOTE | 2017-07-29 13:36 | XR ---
EXAMINATION TYPE: XR chest 2V DATE OF EXAM: 07/29/2017 COMPARISON: 07/28/2017 TECHNIQUE: PA and lateral views submitted. HISTORY: Fever FINDINGS: A right upper lobe consolidation is stable. Chronic rib deformities with bilateral small effusions an d basilar consolidation or atelectasis noted. Diffuse osteopenia and cardiomegaly are stable. Ectasia of the aorta noted. Biapical pleural thickening stable. IMPRESSION: 1. Stable right upper lobe infiltrate. Underlying mass or adenopathy in the differential diagnosis. 2. Stable cardiomegaly with small bilateral effusions and basilar atelectasis or infiltrate.
[2017-07-29 14:09] VITALS: BMI 23.8
[2017-07-29] MEDS: QUEtiapine 50 MG TAB PO SCH (19:48)
[2017-07-29] MEDS: LEVOFLOXACIN 750 MG TAB PO SCH (19:48)
[2017-07-29] MEDS ORDERED: LEVOFLOXACIN 750MG-D5W PMX 750 MG in DEXTROSE/WATER 1 150ML.BAG IVPB SCH (21:00)
[2017-07-30] MEDS: PANTOPRAZOLE 40 MG TABLET PO SCH (06:15)
[2017-07-30 06:25] LABS: Anisocytosis Slight; HCT 35.3 % (39.0-53.0); HGB 10.9 gm/dL (13.0-17.5); Hypochromasia Marked; MCH 28.3 pg (25.0-35.0); MCV 91.1 fL (80.0-100.0); Mean Platelet Volume 8.3; Platelet Count 120 k/uL (150-450); RBC 3.87 m/uL (4.30-5.90); WBC 7.9 k/uL (3.8-10.6)
[2017-07-30 06:30] LABS: Anion Gap 7 mmol/L; Blood Urea Nitrogen 23 mg/dL (9-20); Calcium 8.3 mg/dL (8.4-10.2); Carbon Dioxide 27 mmol/L (22-30); Chloride 110 mmol/L (98-107); Glucose 89 mg/dL (74-99); Potassium 3.7 mmol/L (3.5-5.1); Sodium 144 mmol/L (137-145)
[2017-07-30] MEDS: MEMANTINE 5 MG TAB PO SCH ×2 (08:23→20:25)
[2017-07-30] MEDS: SERTRALINE 100 MG TAB PO SCH (08:23)
[2017-07-30] MEDS: SENNOSIDES-DOCUSATE SODIUM 1 EACH TAB PO SCH ×2 (08:23→20:25)
[2017-07-30] MEDS: ACETAMINOPHEN TAB 325 MG TAB PO PRN (08:23)
[2017-07-30] MEDS: DONEPEZIL 10 MG TAB PO SCH (08:23)
[2017-07-30] MEDS: ATENOLOL 25 MG TAB PO SCH (08:23)
[2017-07-30] MEDS: ACETAMINOPHEN TAB 500 MG TAB PO SCH ×2 (08:26→20:24)
[2017-07-30] MEDS ORDERED: Potassium Replacement Protocol 1 EACH MISC MISCELLANE PRN (16:36)
[2017-07-30] MEDS ORDERED: Magnesium Replacement Protocol 1 EACH MISC MISCELLANE PRN (16:36)
--- NOTE | 2017-07-30 16:41 | P.PN ---
Subjective Progress Note Date: 07/30/17 Progress note being dictated for Dr. Ruano. Interval history:82-year-old pleasant gentleman appears to have dementia which appears to be severe was sent in from assisted living as he was having fever. Patient is unable to provide many history patient apparently was having productive cough and shortness of breath patient is found to have right upper lobe pneumonia. Patient does have history of atrial fibrillation. Patient is not on any anticoagulation at this time probably because of his dementia and had he had issues with hematuria in the past. [facility] because of his mild rapid rate cardio J valid to the patient patient is rate controlled at this time and the patient's Cardizem was discontinued and patient will be transferred to medical surgical floor. Patient is on levofloxacin. Patient does have ALLERGY to penicillin type of ALLERGY is unknown because of which I'll continue with levofloxacin for now. Amlodipine will be discontinued and the patient will be continued on atenolol. 619/18 afebrile with normal WBC. Preliminary blood cultures and urine culture negative. Desatted to 87% on room air, with 2 L nasal cannula O2 recently placed. Nonproductive cough. Atrial fibrillation with controlled ventricular rate per telemetry. Sleepy, but arouses easily. Objective - Vital Signs Vital signs: Vital Signs Temp 97.6 F 07/30/17 12:14 Pulse 85 07/30/17 12:14 Resp 16 07/30/17 12:14 BP 168/81 07/30/17 12:14 Pulse Ox 96 07/30/17 12:14 Intake & Output 07/29/17 07/30/17 07/30/17 18:59 06:59 18:59 Intake Total 720 100 Output Total 1650 300 500 Balance -930 -300 -400 Weight 75.5 kg 74.5 kg Intake: Oral 720 100 Output: Urine 1650 300 500 Uretheral (Sanchez) 1200 500 Other: Voiding Method Indwelling Catheter Indwelling Catheter Indwelling Catheter # Voids 1 - Exam GENERAL: The patient is alert and oriented x1, sitting up in chair, drowsy- arouses easily, no acute distress. HEENT: Pupils are round and equally reacting to light. EOMI. No scleral icterus. No conjunctival pallor. Normocephalic, atraumatic. No pharyngeal erythema. No thyromegaly. CARDIOVASCULAR: S1 and S2 present. No murmurs, rubs, or gallops. Irregularly irregular rhythm, controlled ventricular rate PULMONARY: Chest is clear to auscultation, no wheezing or crackles. ABDOMEN: Soft, nontender, nondistended, normoactive bowel sounds. No palpable organomegaly. MUSCULOSKELETAL: No joint swelling or deformity. EXTREMITIES: No cyanosis, clubbing, or pedal edema. Chronic venous stasis dermatosis of bilateral lower limbs without any cellulitis NEUROLOGICAL: Neuro exam is significantly limited as patient cannot follow commands, SKIN: No rashes. - Labs CBC & Chem 7: 07/30/17 05:47 07/30/17 05:47 Labs: Abnormal Lab Results - Last 24 Hours (Table) 07/30/17 07/30/17 Range/Units 05:47 05:47 RBC 3.87 L (4.30-5.90) m/uL Hgb 10.9 L (13.0-17.5) gm/dL Hct 35.3 L (39.0-53.0) % RDW 18.0 H (11.5-15.5) % Plt Count 120 L (150-450) k/uL Chloride 110 H (98-107) mmol/L BUN 23 H (9-20) mg/dL Calcium 8.3 L (8.4-10.2) mg/dL Microbiology - Last 24 Hours (Table) 07/28/17 20:26 Urine Culture - Final Urine,Catheterized 07/28/17 20:00 Blood Culture - Preliminary Blood No Growth after 24 hours Assessment and Plan Assessment: -Sepsis is secondary to right upper lobe pneumonia -Atrial fibrillation with mildly elevated ventricular rate, presently rate controlled. patient is not on anticoagulation because of his advanced dementia. -Generalized deconditioning: -Possibility of advanced dementia, I do not know the etiology of dementia -Gastroesophageal reflux disease -Hypertension -CVA TIA in the past Plan: Continue on current medication regime ,monitoring and symptomatic treatment. Significant clinical improvement. Transfer to [facility] with remote telemetry and continue monitoring overnight. Discharge planning in progress for tomorrow to [facility]. The impression and plan of care has been dictated as directed. : I performed a history and examination of this patient, discussed the same with the dictator. I agree with the dictator's note ,documented as a scribe. Any additional findings or plans will be noted.
[2017-07-30] MEDS: LEVOFLOXACIN 750 MG TAB PO SCH (20:25)
[2017-07-30] MEDS: QUEtiapine 50 MG TAB PO SCH (20:25)
[2017-07-31 05:02] VITALS: PULSE 77; RESP 16
[2017-07-31] MEDS: PANTOPRAZOLE 40 MG TABLET PO SCH (06:16)
[2017-07-31] MEDS: SENNOSIDES-DOCUSATE SODIUM 1 EACH TAB PO SCH (08:23)
[2017-07-31] MEDS: MEMANTINE 5 MG TAB PO SCH (08:24)
[2017-07-31] MEDS: ATENOLOL 25 MG TAB PO SCH (08:24)
[2017-07-31] MEDS: DONEPEZIL 10 MG TAB PO SCH (08:24)
[2017-07-31] MEDS: SERTRALINE 100 MG TAB PO SCH (08:24)
[2017-07-31] MEDS: ACETAMINOPHEN TAB 500 MG TAB PO SCH (08:26)
[2017-07-31 11:48] VITALS: BP 146/84; TEMP 97.6
--- NOTE | 2017-07-31 17:30 | P.DS ---
Providers Date of admission: 07/28/17 21:39 Expected date of discharge: 07/31/17 Attending physician: Pablo Ruano Consults: 07/28/17 23:09 Consult Physician Routine Consulting Provider: Tj Lam Consult Reason/Comments: afib rvr Do you want consulting provider notified?: Yes, Notify in am Primary care physician: Rj Mathis Hospital Course: Final Diagnoses: -Sepsis is secondary to right upper lobe pneumonia -Atrial fibrillation with mildly elevated ventricular rate, presently rate controlled. patient is not on anticoagulation because of his advanced dementia. -Generalized deconditioning: -Possibility of advanced dementia, I do not know the etiology of dementia -Gastroesophageal reflux disease -Hypertension -CVA TIA in the past -Urinary retention, recurrent, in a patient with history of BPH. Hospital course:82-year-old pleasant gentleman appears to have dementia which appears to be severe was sent in from assisted living as he was having fever. Patient is unable to provide many history patient apparently was having productive cough and shortness of breath patient is found to have right upper lobe pneumonia. Patient does have history of atrial fibrillation. Patient is not on any anticoagulation at this time probably because of his dementia and had he had issues with hematuria in the past. Patient was admitted to [facility] to care unit because of his mild rapid rate. Evaluated by cardiology. patient is rate controlled at this time and the patient's Cardizem was discontinued. Maintained on Levaquin. Amlodipine will be discontinued and the patient will be continued on atenolol. Recurrent urinary retention, Sanchez placed, patient follows with Dr. Louise, to follow with /Urology within 1 week. Cleared by cardiology for discharge. Significant clinical improvement. patient is being discharged to [facility] in a stable condition with guarded prognosis. GEXAM:ENERAL: CARDIOVASCULAR: S1 and S2 present. No murmurs, rubs, or gallops. Irregularly irregular rhythm, controlled ventricular rate PULMONARY: Chest is clear to auscultation, no wheezing or crackles. ABDOMEN: Soft, nontender, nondistended, normoactive bowel sounds. No palpable organomegaly. NEUROLOGICAL: Neuro exam is significantly limited as patient cannot follow commands, Microbiology 07/28/17 20:00 Blood Blood Culture - Preliminary No Growth after 48 hours 07/28/17 20:26 Urine,Catheterized Urine Culture - Final The impression and plan of care has been dictated as directed. : I performed a history and examination of this patient, discussed the same with the dictator. I agree with the dictator's note ,documented as a scribe. Any additional findings or plans will be noted. Time taken: 35 minutes Patient Condition at Discharge: Stable Plan - Discharge Summary New Discharge Prescriptions: New Levofloxacin [Levaquin] 750 mg PO HS #5 tab Continue Atenolol [Tenormin] 25 mg PO DAILY@0800 Omeprazole [PriLOSEC] 40 mg PO DAILY Acetaminophen Tab [Tylenol] 650 mg PO Q4H PRN PRN Reason: FEVER/PAIN Sertraline [Zoloft] 100 mg PO DAILY@0800 Memantine [Namenda] 10 mg PO BID@08,1999 Acetaminophen Tab [Tylenol] 500 mg PO BID@799,1999 Donepezil [Aricept] 10 mg PO DAILY@0800 Prochlorperazine [Compazine] 5 mg PO Q6H PRN PRN Reason: Nausea Sennosides-Docusate Sodium [Senokot-S] 1 tab PO BID QUEtiapine FUMARATE 50 mg PO HS Ergocalciferol (Vitamin D2) [Vitamin D2] 50,000 unit PO FR Magnesium Hydroxide [Milk of Magnesia] 400 mg PO Q72H PRN PRN Reason: Constipation Lactulose 10 gm PO BID PRN PRN Reason: Constipation Mag Hydrox/Al Hydrox/Simeth [Maalox] 10 ml PO QID Ensure 250 ml PO BID@0800,1700 Discontinued ALPRAZolam [Xanax] 0.5 mg PO Q6H PRN PRN Reason: Anxiety amLODIPine [Norvasc] 2.5 mg PO DAILY@0800 QUEtiapine [SEROquel] 100 mg PO DAILY PRN PRN Reason: Agitation Haloperidol [Haldol] 1 mg PO Q8H PRN PRN Reason: Agitation Discharge Medication List Atenolol [Tenormin] 25 mg PO DAILY@0800 11/23/13 [History] Omeprazole [PriLOSEC] 40 mg PO DAILY 11/23/13 [History] Acetaminophen Tab [Tylenol] 650 mg PO Q4H PRN 05/30/14 [History] Acetaminophen Tab [Tylenol] 500 mg PO BID@0800,199911/28/15 [History] Donepezil [Aricept] 10 mg PO DAILY@0800 11/28/15 [History] Memantine [Namenda] 10 mg PO BID@799,199911/28/15 [History] Prochlorperazine [Compazine] 5 mg PO Q6H PRN 11/28/15 [History] Sertraline [Zoloft] 100 mg PO DAILY@0800 11/28/15 [History] Ensure 250 ml PO BID@0800,1700 07/29/17 [History] Ergocalciferol (Vitamin D2) [Vitamin D2] 50,000 unit PO FR 07/29/17 [History] Lactulose 10 gm PO BID PRN 07/29/17 [History] Mag Hydrox/Al Hydrox/Simeth [Maalox] 10 ml PO QID 07/29/17 [History] Magnesium Hydroxide [Milk of Magnesia] 400 mg PO Q72H PRN 07/29/17 [History] QUEtiapine FUMARATE 50 mg PO HS 07/29/17 [History] Sennosides-Docusate Sodium [Senokot-S] 1 tab PO BID 07/29/17 [History] Levofloxacin [Levaquin] 750 mg PO HS #5 tab 07/31/17 [Rx] Follow up Appointment(s)/Referral(s): Pavan Montanez MD [STAFF PHYSICIAN] - 2 Weeks (Spoke to [employer]. Office will call with appointment time) Rj Mathis MD [Primary Care Provider] - 08/01/17 (Will call you with appointment time tomorrow) [facility] Visiting Nurse, [NON-STAFF] - Chung Louise MD [STAFF PHYSICIAN] - 1 Week (Office is currently closed. Please call to make appointment.) Ambulatory/Diagnostic Orders: Complete Blood Count w/diff [LAB.AMB] Time Frame: 3 Days, Location: Determined By Patient Patient Instructions/Handouts: A-fib (Atrial Fibrillation) (DC), Sanchez Catheter Placement and Care (DC), Pneumonia (DC) Activity/Diet/Wound Care/Special Instructions: Sarahi Gilmore [phone] Activity: limited till F/U Discharge Disposition: HOME WITH HOME HEALTH SERVICES
[2017-08-02] MEDS ORDERED: ERGOCALCIFEROL 50,000 UNIT CAP PO SCH (09:00)
== END 2017-07-31 15:20 | disposition home health service (06) | DRG 871 ==
LOC: EC 19:28 → 6SEL 21:39
PROVIDERS: ADMIT Hospitalist; ATTEND Hospitalist
DX: A41.9 Sepsis, unspecified organism (principal); J18.9 Pneumonia, unspecified organism; J96.01 Acute respiratory failure with hypoxia; J44.0 Chronic obstructive pulmonary disease with (acute) lower respiratory infection; I48.2 Chronic atrial fibrillation; F03.90 Unspecified dementia, unspecified severity, without behavioral disturbance, psychotic disturbance, mood disturbance, and anxiety; R33.8 Other retention of urine; E78.5 Hyperlipidemia, unspecified; K21.9 Gastro-esophageal reflux disease without esophagitis; I10 Essential (primary) hypertension; M19.90 Unspecified osteoarthritis, unspecified site; N40.1 Benign prostatic hyperplasia with lower urinary tract symptoms; K59.00 Constipation, unspecified; Z79.899 Other long term (current) drug therapy; Z82.49 Family history of ischemic heart disease and other diseases of the circulatory system; Z87.891 Personal history of nicotine dependence; Z86.73 Personal history of transient ischemic attack (TIA), and cerebral infarction without residual deficits; Z88.0 Allergy status to penicillin; Z85.89 Personal history of malignant neoplasm of other organs and systems; Z83.49 Family history of other endocrine, nutritional and metabolic diseases; Z87.828 Personal history of other (healed) physical injury and trauma
CPT/HCPCS: 36415; 51702; 71046; 74018; 80048; 80053; 81001; 83605; 83735; 84132; 84443; 84484; 85025; 85027; 85610; 85730; 87040; 87086; 93005; 96365; 96366; 99285